=== PATIENT | female | born 1950 | race Caucasian/White ===

== ENCOUNTER 2023-01-10 10:36 | Outpatient (OUT) | payer MEDICARE, SELFPAY ==
--- NOTE | 2023-01-10 10:46 | MM_ITS ---
Patient Name: SHAAN CHOUDHARY MR#: [id number] : 1950 Exam Date: 01/10/2023 Ordering Doctor: DR JOSE HOPKINS M.D. RADIOLOGY REPORT PROCEDURE: MM TOMOSYNTHESIS SCREENING BI COMPARISON: MG MAMM SCREEN 3D SHIRLEY CAD, 12/30/2021. MG MAMM SCREEN 3D SHIRLEY CAD, 12/29/2020. MG MAMM SCREEN SHIRLEY W CAD, 12/11/2019. MG MAMM SHIRLEY SCRN W CAD DIG, 09/10/2012. INDICATIONS: Screening Calculator Name NCI Breast Cancer Risk Assessment Tool 5 Year Breast Cancer Risk 2.30% Lifetime Breast Cancer Risk 6.40% Personal Breast Cancer No Personal Ovarian Cancer No Treatments None Family Cancers Grandmother-maternal with breast cancer at age 80; Father with lung cancer at age 78; Grandmother-maternal with uterine cancer at age ~80. LOCATION: [facility] BREAST COMPOSITION: Scattered areas fibroglandular density. FINDINGS: DIAGNOSTIC CATEGORY 2--BENIGN FINDING: RIGHT BREAST: No significant suspicious finding. Scattered benign-appearing calcifications are present. No significant change has occurred. LEFT BREAST: No significant suspicious finding. Scattered benign-appearing calcifications are present. No significant change has occurred. RECOMMENDATIONS: ROUTINE MAMMOGRAM AND CLINICAL EVALUATION IN 12 MONTHS. PLEASE NOTE: A NORMAL MAMMOGRAM DOES NOT EXCLUDE THE POSSIBILITY OF BREAST CANCER. A CLINICALLY SUSPICIOUS PALPABLE LUMP SHOULD BE BIOPSIED. Dictated by: Jayjay Beauchamp M.D. on 01/16/2023 at 12:43 Approved by: Jayjay Beauchamp M.D. on 01/16/2023 at 12:46
== END 2023-01-10 10:37 | disposition home or self-care (01) ==
LOC: MAMMO 10:39
PROVIDERS: PCP Family Medicine; Visit Provider Family Medicine
DX: Z12.31 Encounter for screening mammogram for malignant neoplasm of breast (principal); Z80.3 Family history of malignant neoplasm of breast; Z80.1 Family history of malignant neoplasm of trachea, bronchus and lung; Z80.8 Family history of malignant neoplasm of other organs or systems
CPT/HCPCS: 77063; 77067

== ENCOUNTER 2024-01-15 11:08 | Outpatient (OUT) | payer MEDICARE, SELFPAY ==
--- NOTE | 2024-01-15 11:14 | MM_ITS ---
Patient Name: SHAAN CHOUDHARY MR#: [id number] : 1950 Exam Date: 01/15/2024 Ordering Doctor: DR JOSE HOPKINS M.D. RADIOLOGY REPORT PROCEDURE: MM TOMOSYNTHESIS SCREENING BI COMPARISON: MM TOMOSYNTHESIS SCREENING BI, 01/10/2023. MG MAMM SCREEN 3D SHIRLEY CAD, 12/30/2021. MG MAMM SCREEN 3D SHIRLEY CAD, 12/29/2020. MG MAMM SHIRLEY SCRN W CAD DIG, 09/10/2012. INDICATIONS: Screening Calculator Name NCI Breast Cancer Risk Assessment Tool 5 Year Breast Cancer Risk 2.40% Lifetime Breast Cancer Risk 6.10% Personal Breast Cancer No Personal Ovarian Cancer No Treatments None Family Cancers Grandmother-maternal with breast cancer at age 80; Father with lung cancer at age 78; Grandmother-maternal with uterine cancer at age ~80. LOCATION: [facility] BREAST COMPOSITION: There are scattered areas of fibroglandular density. FINDINGS: DIAGNOSTIC CATEGORY 2--BENIGN FINDING: RIGHT BREAST: No significant suspicious finding. Scattered benign-appearing calcifications are present. No significant change has occurred. LEFT BREAST: No significant suspicious finding. Scattered benign-appearing calcifications are present. No significant change has occurred. RECOMMENDATIONS: ROUTINE MAMMOGRAM AND CLINICAL EVALUATION IN 12 MONTHS. PLEASE NOTE: A NORMAL MAMMOGRAM DOES NOT EXCLUDE THE POSSIBILITY OF BREAST CANCER. A CLINICALLY SUSPICIOUS PALPABLE LUMP SHOULD BE BIOPSIED. Dictated by: Jayjay Beauchamp M.D. on 01/15/2024 at 15:31 Approved by: Jayjay Beauchamp M.D. on 01/15/2024 at 15:33
--- OUTSIDE RECORDS SUMMARY | 2024-01-15 11:30 | XMS_ITS | CCD ---
Author Organization [facility] Care Team Providers Care Postal Delivery Officer Name Role Phone AUSTIN PADRON Attending Unavailable KELLIE, DR GARCIA Primary Care Unavailable VITO, DR AUSTIN Boyd Admitting Unavailjerry PADRON, DR AUSTIN Boyd Attending Unavailjerry PADRON, DR AUSTIN Boyd Consulting Unavailabl e CHARLES, DR SAHARA Zurita Consulting Unavailabl e GREGORIO, DR SUYAPA Peraza Consulting Unavailable MORGOLiz, MONO Consulting Unavailable GEMBUS, JOSELUIS Consulting Unavailable KELLIE, DR GARCIA Admitting Unavailable KELLIE, DR GARCIA Attending Unavailable KELLIE, DR GARCIA Primary Care Unavailable KELLIE, DR GARCIA Consulting Unavailable QUITMAN, DR MOHSEN Vo Consulting Unavailable Cris Hopkins MD Unavailable [phone] Cris Hopkins MD Primary Care Provider CRIS HOPKINS Primary Care Unavailable ROBSON STONE Referring Unavailable MOHSEN LONGORIA Attending Unavailable MOHSEN LONGORIA Referring Unavailable CRIS HOPKINS Primary Care Unavailable MOHSEN LONGORIA Referring Unavailable CRIS HOPKINS Primary Care Unavailable CRIS HOPKINS Primary Care Unavailable ROBSON STONE Admitting Unavailable ROBSON STONE Attending Unavailable MOHSEN LONGORIA Attending Unavailable CRIS HOPKINS Primary Care Unavailable KANIKA VAZQUEZ Attending Unavailable CRIS HOPKINS Referring Unavailable KANIKA VAZQUEZ Attending Unavailable CRIS HOPKINS Referring Unavailable CRIS HOPKINS Attending Unavailable CRIS HOPKINS Referring Unavailable GEORGE KANIKA T Attending Unavailable CRIS HOPKINS Referring Unavailable ROBSON STONE Attending Unavailable ROGERIO LOPEZ Attending Unavailable GEORGE, KANIKA T Attending Unavailable CRIS HOPKINS Referring Unavailable KANIKA VAZQUEZ Attending Unavailable CRIS HOPKINS Referring Unavailable KANIKA VAZQUEZ Attending Unavailable CRIS HOPKINS Referring Unavailable KANIKA VAZQUEZ Attending Unavailable CRIS HOPKINS Referring Unavailable ROBSON STONE Attending Unavailable ROBSON STONE S Attending Unavailable ROBSON STONE S Referring Unavailable ROBSON STONE S Attending Unavailable CRIS HOPKINS Attending Unavailable RBOSON STONE S Attending Unavailable ROBSON STONE S Attending Unavailable ROBSON STONE S Attending Unavailable Allergies Allergy Classification Reported Allergen(s) Allergy Type Date of Onset Reaction(s) Facility (2 sources) Penicillins; Translations: [PENICILLINS] Drug allergy (disorder) 4 [facility] Repository (9 sources) Lisinopril; Translations: [LISINOPRIL] Propensity to adverse reactions 7 Cough [facility] Work Phone: (8 sources) Penicillins Drug Intolerance 7 Rash [facility] Medications Current Medications Medication Drug Class(es) Dates Sig (Normalized) Sig (Original) alendronic acid 70 mg oral tablet (9 sources) Bisphosphonate Start: 01-14-2024 take 1 tablet by mouth every week alendronate (Fosamax) 70 MG tablet Indications: Osteopenia, unspecified location TAKE 1 TABLET BY MOUTH EVERY WEEK 12 tablet 1 01/14/2024 Active Start: 08-06-2023 End: 01-14-2024 take 1 tablet by mouth every week alendronate (Fosamax) 70 MG tablet Indications: Osteopenia, unspecified location TAKE 1 TABLET BY MOUTH EVERY WEEK 12 tablet 1 08/06/2023 01/14/2024 Discontinued Start: 02-05-2023 take 1 tablet by elzbieta th every week alendronate (Fosamax) 70 MG tablet Indications: Osteopenia, unspecified location TAKE 1 TABLET BY MOUTH EVERY WEEK 12 tablet 0 02/05/2023 Active cyclobenzaprine hydrochloride 10 mg oral tablet (6 sources) Muscle Relaxant Start: 11-22-2023 take 1 tablet by mouth three times daily as needed cyclobenzaprine (Flexeril) 10 MG tablet Take 10 mg by mouth 3 (three) times a day as needed 11/22/2023 Active gabapentin (7 sources) Anti-epileptic Agent Gabapentin 10 % cream Apply topically Active losartan potassium 100 mg oral tablet (8 sources) Angiotensin 2 Receptor Luís Start: 10-29-2023 take 1 tablet by mouth once daily losartan (Cozaar) 100 MG tablet Indications: Primary hypertension (CMS/HCC) TAKE 1 TABLET BY MOUTH ONCE DAILY 100 tablet 10/29/2023 Active Start: 08-11-2022 take 1 tablet by elzbieta th once daily losartan (Cozaar) 100 MG tablet Indications: Primary hypertension (CMS/HCC) TAKE 1 TABLET BY MOUTH ONCE DAILY 100 tablet 2 08/11/2022 Active methylPREDNISolone (1 source) Corticosteroid Start: 04-04-2023 methylPREDNISolone (Medrol Dospak) 4 MG tablets Indications: Achilles tendinitis of right lower extremity Take as directed on package. 21 tablet 0 04/04/2023 Active moxifloxacin 5 mg/ml ophthalmic solution (8 sources) Quinolone Antimicrobial Start: 11-16-2022 take 1 drop(s) into the eye(s) four times daily moxifloxacin (Vigamox) 0.5 % ophthalmic solution instill 1 (ONE) DROP IN THE AFFECTED EYE(S) FOUR TIMES DAILY for the day following surgery FOR 7 DAYS 11/16/2022 Active NON FORMULARY (7 sources) Start: 06-04-2023 NON FORMULARY 06/04/2023 Active oxyCODONE hydrochloride 5 mg oral tablet (6 sources) Opioid Agonist Start: 11-22-2023 take 1 tablet by mouth every four hours as needed oxyCODONE (Roxicodone) 5 MG immediate release tablet Take 5 mg by mouth every 4 (four) hours if needed 11/22/2023 Active prednisoLONE acetate 10 mg/ml ophthalmic suspension (8 sources) Corticosteroid Start: 11-23-2022 take 1 drop(s) into the eye(s) four times daily prednisoLONE acetate (Pred-Forte) 1 % ophthalmic suspension instill 1 (ONE) DROP IN THE AFFECTED EYE(S) FOUR TIMES DAILY following surgery FOR 7 DAYS 11/23/2022 Active Problems Active Problems Problem Classification Problem Date Documented Da te Episodic/Chronic Abdominal pain (3 sources) Unspecified abdominal pain; Translations: [UNSPECIFIED ABDOMINAL PAIN] Onset: 11-08-2021 Episodic Appendicitis and other appendiceal conditions (1 source) Acute appendicitis with perforation and localized peritonitis, without abscess; Translations: [AC APPEND W/PERF LOC PERIT W/O ABSC] Onset: 11-14-2021 Episodic Disorders of lipid metabolism (8 sources) Hyperlipidemia; Translations: [Hyperlipidemia, unspecified] Onset: 09-28-2022 09-28-2022 Chronic Essential hypertension (10 sources) Essential (primary) hypertension; Translations: [Essential hypertension] Onset: 07-11-2016 09-28-2022 Chronic Miscellaneous mental health disorders (8 sources) Primary insomnia; Translations: [Primary insomnia] Onset: 09-28-2022 09-28-2022 Chronic Osteoarthritis (8 sources) Localized, primary osteoarthritis of the pelvic region and thigh; Translations: [Unilateral primary osteoarthritis, unspecified hip] Onset: 09-28-2022 09-28-2022 Chronic Other bone disease and musculoskeletal deformities (9 sources) Osteopenia; Translations: [Other specified disorders of bone density and structure, unspecified site] Onset: 01-07-2018 09-28-2022 Episodic Other connective tissue disease (1 source) Right achilles tendonitis; Translations: [Achilles tendinitis, right leg] 04-04-2023 Episodic Other connective tissue disease (1 source) Other muscle spasm; Translations: [Other muscle spasm] Onset: 11-22-2023 Episodic Other connective tissue disease (4 sources) Pain in right foot; Translations: [Pain in right foot] 12-05-2023 Episodic Other screening for suspected conditions (not mental disorders or infectious disease) (4 sources) Encounter for screening mammogram for malignant neoplasm of breast; Translations: [ENC SCR MAMMO MALIG NEOPLASM BREAST] Onset: 12-30-2021 Episodic Residual codes; unclassified (1 source) Family history of malignant neoplasm of breast; Translations: [FAMILY HX MALIG NEOPLASM OF BREAST] Onset: 01-03-2022 Episodic Residual codes; unclassified (1 source) Family history of malignant neoplasm of trachea, bronchus and lung; Translations: [FAM HX MALIG NEOPLSM TRACH BRON LNG] Onset: 01-03-2022 Episodic Residual codes; unclassified (1 source) Family history of malignant neoplasm of other genital organs; Translations: [FAM HX MALIG NEOPLSM OTH GENIT ORGN] Onset: 01-03-2022 Episodic Residual codes; unclassified (1 source) Other specified postprocedural states; Translations: [Other specified postprocedural states] Onset: 11-22-2023 Episodic Residual codes; unclassified (4 sources) History of operative procedure on foot; Translations: [Other specified postprocedural states] 12-05-2023 Episodic Residual codes; unclassified (2 sources) Localized edema; Translations: [Localized edema] 12-19-2023 Episodic Unclassified (1 source) CONTACT W/AND (SUSP) EXPOS COVID-19; Translations: [CONTACT W/AND (SUSP) EXPOS COVID-19] Onset: 11-14-2021 Unclassified (1 source) right achilles tendonitis, equinus contracture Onset: 11-22-2023 Past or Other Problems Problem Classification Problem Date Documented Da te Episodic/Chronic Mood disorders (7 sources) Mood disorders Onset: 09-28-2023 09-28-2023 Results Test Name Value Interpretation Reference Range Facil it BASIC METABOLIC PANLon 11-12 Anion gap [Moles/Vol] 8 mmol/L Normal 5-15 [facility] Comment on above: Performed By: #### B MP #### [facility] ([id number]) [address], [address] [place] [address] Calcium [Mass/Vol] 8.9 mg/dL Normal 8.5-10.5 [facility] Comment on above: Performed By: #### B MP #### [facility] ([id number]) [address], [address] [place] [address] Chloride [Moles/Vol] 105 mmol/L Normal 98-109 [facility] Comment on above: Performed By: #### B MP #### [facility] ([id number]) [address], [address] [place] [address] CO2 [Moles/Vol] 27 mmol/L Normal 22-32 [facility] Comment on above: Performed By: #### B MP #### [facility] ([id number]) [address], [address] [place] [address] Creatinine [Mass/Vol] 0.68 mg/dL Normal 0.40-1.00 [facility] Comment on above: Result Comment: METH OD TRACEABLE TO IDMS STANDARD Performed By: #### B MP #### [facility] ([id number]) [address], [address] [place] [address] eGFR (CKD-EPI) NON-RACE DEPENDENT >90 Normal >59 [facility] Comment on above: Result Comment: Reported eGFR is based on the CKD-EPI 2020 equation that does not use a race coefficient. Performed By: #### B MP #### [facility] ([id number]) [address], [address] [place] [address] Glucose [Mass/Vol] 111 mg/dL High 65-99 [facility] Comment on above: Performed By: #### B MP #### [facility] ([id number]) [address] [place] [address] Potassium [Moles/Vol] 3.8 mmol/L Normal 3.5-5.0 [facility] Comment on above: Performed By: #### B MP #### [facility] ([id number]) [address], [address] [place] [address] Sodium [Moles/Vol] 140 mmol/L Normal 134-146 [facility] Comment on above: Performed By: #### B MP #### [facility] ([id number]) [address] [place] [address] Urea nitrogen [Mass/Vol] 9 mg/dL Normal 5-27 [facility] Comment on above: Performed By: #### B MP #### [facility] ([id number]) [address], [address] [place] [address] MR ANKLE RIGHT WO IV CONTRAS Ton 08-22-2023 MR ANKLE RIGHT WO IV CONTRAST HISTORY: Heel pain at the Achilles. No recent injury. TECHNIQUE: Routine MRI of the right ankle/hindfoot COMPARISON: None RESULT: Cartilage: Tibiotalar and subtalar joint cartilage grossly preserved. Ligaments: Talofibular ligaments, tibiofibular ligaments, calcaneofibular ligament and deltoid ligament all appear to be intact. Tendons: - Moderate to severe Achilles tendinosis with tendon measuring around 10 mm in AP dimension, with small areas of low-grade partial-thickness stripping/tearing distally near the insertion involving the deeper fibers, without full-thickness tear. Small amount of fluid within the retrocalcaneal bursal region. Small amount of reactive edema within the posterior calcaneus at the insertion. - Extensor tendons appear intact. - Medial flexor tendons appear intact with small amount of fluid at the knot of Samuel. -Small amount of increased fluid within the peroneal tendon sheath, without distinct peroneal tear. Joint Fluid: Small tibiotalar joint effusion. Bone Marrow: Bone marrow edema involving the posterior calcaneus near the Achilles insertion as above, likely reactive. No evidence for fracture, osteomyelitis, or marrow replacing process. Plantar Aponeurosis: Mild thickening near origin with associated enthesophyte, without tear. Sinus Tarsi: Sinus tarsi is within normal limits. Muscle: Muscle bulk and signal intensity is within normal limits. Tarsal Tunnel: Tarsal tunnel is within normal limits. Other: Mild subcutaneous edema. IMPRESSION: Moderate to severe Achilles tendinosis with small areas of low-grade partial-thickness tearing/stripping distally, without full-thickness tear. Small amount of retrocalcaneal bursitis and reactive edema within the calcaneus at the Achilles insertion. Mild peroneal tenosynovitis, without tear. Mild tenosynovitis at the knot of Samuel. ELECTRONICALLY SIGNED BY: Joseluis Peña MD Normal Not Available DEXA BONE DENSITYon 01-17-20 DEXA BONE DENSITY HISTORY: Screening for osteoporosis COMPARISON: 01/10/2021 DEXA COMMENTS: The lumbar spine and both hips were scanned. The mean bone mineral density from L1 to L4 is 1.103 g/sq cm. T-score 0.5. Z- score 2.7 The mean bone mineral density of the left femoral neck is 0.773 g/sq cm. T-score -0.7. Z- score 1.2. The mean bone mineral density of the right femoral neck is 0.664 g/sq cm. T-score -1.7. Z- score 0.2. These values meet WHO criteria for osteopenia. 10-year fracture risk: Major osteoporotic fracture 10%; hip fracture 1.7%. Hip bone mineral density change versus previous 4.5%. Lumbar spine bone mineral density change versus previous 1.1%. IMPRESSION: OSTEOPENIA. 1 year follow-up recommended. ELECTRONICALLY SIGNED BY: Cody Mitchell DO Normal Not Available MG MAMM SCREEN 3D SHIRLEY CADon 12-30-2021 MG MAMM SCREEN 3D SHIRLEY CAD Patient: SHAAN CHOUDHARY Exam Date: 12/30/2021 : 1950 Gender:F Ordering : DR CRIS HOPKINS M.D. Admission #: [id number] Family : Order #: [id number] CLICK HERE TO VIEW EXAM RADIOLOGY REPORT PROCEDURE: MAMMOGRAM SCREENING 3D BILATERAL CAD COMPARISON: MG MAMM SCREEN 3D SHIRLEY CAD, 12/29/2020. MG MAMM SCREEN SHIRLEY W CAD, 12/11/2019. INDICATIONS: Screening mammography Calculator Name NCI Breast Cancer Risk Assessment Tool 5 Year Breast Cancer Risk 2.30% Lifetime Breast Cancer Risk 6.70% Personal Breast Cancer No Personal Ovarian Cancer No Treatments None Family Cancers Grandmother-maternal with breast cancer at age 80; Father with lung cancer at age 78; Grandmother-maternal with uterine cancer at age 80. LOCATION: [facility] BREAST COMPOSITION: Scattered areas fibroglandular density. FINDINGS: DIAGNOSTIC CATEGORY 1--NEGATIVE. NO CHANGE FROM COMPARISON ASSESSMENT. Scattered benign-appearing calcifications are present. Scattered benign-appearing lymph nodes are present. RIGHT BREAST: No significant suspicious finding. LEFT BREAST: No significant suspicious finding. RECOMMENDATIONS: ROUTINE MAMMOGRAM AND CLINICAL EVALUATION IN 12 MONTHS. PLEASE NOTE: A NORMAL MAMMOGRAM DOES NOT EXCLUDE THE POSSIBILITY OF BREAST CANCER. A CLINICALLY SUSPICIOUS PALPABLE LUMP SHOULD BE BIOPSIED. Dictated by: Mohsen Grimaldo MD on 12/30/2021 at 11:16 Approved by: Mohsen Grimaldo MD on 12/30/2021 at 11:17 Normal [facility] SURGICAL PATH REPORTon 11-10 SURGICAL PATH REPORT [facility] Department of Pathology [address] [place] [phone] Name: SHAAN CHOUDHARY : 1950 [facility] [id number] Number: Gender Female Francesco [place]Y [place] : n: Admit 70 years Attending AUSTIN PADRON Age: Provider: Ordering AUSTIN PADRON Provider: [facility] Report ng: ACCESSION: COLLECTED DATE/TIME: RECEIVED DATE/TIME: PATHOLOGIST: [id number] 11/08/2021 16:30 EDT 11/09/2021 11:42 EDT RAGHU ORLANDO, YAW WHITMORE Final Diagnosis Report for [facility] [place] [place] APPENDIX, APPENDECTOMY: - ACUTE APPENDICITIS WITH PERFORATION. YAW KRISHNAMURTHY PATHOLOGIST (Electronic Signature) Date Verified 11/10/2021 LN Clinical Data PRE-OP DIAGNOSIS: Not specified POST-OP DIAGNOSIS: Acute gangrenous perforated appendicitis PROCEDURES: Laparoscopic appendectomy SPECIMEN: Appendix / Observation Gross Description Labeled appendix. Received in formalin is a cylindrical structure with attached mesoappendiceal adipose tissue. It measures 8.0 cm in length with a proximal cross diameter of 1.0 cm, distally 0.9 cm. The attached mesoappendiceal adipose tissue radiates to a maximum dimension of 2.0 cm. The serosal surface is daily pink to red brown, irregular and shaggy. The stapled line of resection is inked in blue. On cut section, the proximal lumen has a cross diameter of 0.6 cm, distally 0.1 cm. The surrounding wall is daily with multiple areas of red black discoloration. The lumen is filled with brown material. Rotary Machine Operator sections are submitted in two cassettes. The line of resection is submitted in cassette #1. ____ Print 11/10/2021 14:03 EDT Number: Date/Time: [facility] Department of Pathology [address] [place] [phone] Name: SHAAN CHOUDHARY : 1950 [employer] [id number] Number: Gender Female Locatio ZBIGNIEW CRISTOFER : n: Admit 70 years Attending AUSITN PADRON Age: Provider: Ordering AUSTIN PADRON Provider: [facility] Pathology Report ng: ACCESSION: COLLECTED DATE/TIME: RECEIVED DATE/TIME: PATHOLOGIST: [id number] 11/08/2021 16:30 EDT 11/09/2021 11:42 EDT RAGHU ORLANDO, YAW WHITMORE Gross Description MP/ln 11/09/2021 Tissue pathology report for: [facility], [address] [place] [address]; PATHOLOGY SERVICES PROVIDED BY [employer] (CLIA #[id number]) in cooperation with [facility] at [address] [place] [address] ( CLIA #[id number]) Codes CPT CODE: 18093 ____ Print 11/10/2021 14:03 EDT Number: Date/Time: Normal [facility] Comment on above: Performed By: #### [id number] #### [facility] Laboratory Services [address] [place] [address] Computer Language Coder: Jose Jha MD CBC AUTO DIFFon 11-09-2021 BASO # 0.0 103/ul Normal 0.0-0.1 [facility] Comment on above: Performed By: #### C BC #### [facility] [address] [place] [address] Dr. Radha Small Basophils/100 WBC (Bld) 0.1 % Critically low 0.2-2.0 [facility] Comment on above: Performed By: #### C BC #### [facility] [address] [place] [address] Dr. Radha Small EO # 0.0 103/ul Normal 0.0-0.7 [facility] Comment on above: Performed By: #### C BC #### [facility] [address] [place] [address] Dr. Radha Small Eosinophils/100 WBC (Bld) 0.0 % Critically low 0.9-7.0 [facility] Comment on above: Performed By: #### C BC #### [facility] [address] [place] [address] Dr. Radha Small Erythrocyte distribution width (RBC) [Ratio] 13.4 % Normal 11.0-15.0 [facility] Comment on above: Performed By: #### C BC #### [facility] [address] [place] [address] Dr. Rdaha Small Hematocrit (Bld) [Volume fraction] 28.9 % Critically low 36.0-48.0 [facility] Comment on above: Performed By: #### C BC #### [facility] [address] [place] [address] Dr. Radha Small Hemoglobin (Bld) [Mass/Vol] 9.7 g/dL Critically low 12.0-16.0 [facility] Comment on above: Performed By: #### C BC #### [facility] [address] [place] [address] Dr. Radha Small IG # 0.07 10e3/ul Critically high 0.00-0.03 [facility] Comment on above: Performed By: #### C BC #### [facility] [address] [place] [address] Dr. Radha Small IG % 0.5 % Normal 0.0-0.5 [facility] Comment on above: Performed By: #### C BC #### [facility] [address] [place] [address] Dr. Radha Small LYMPH # 0.9 103/ul Critically low 1.2-3.8 [facility] Comment on above: Performed By: #### C BC #### [facility] [address] [place] [address] Dr. Radha Small Lymphocytes/100 WBC (Bld) 6.9 % Critically low 20.5-60.0 [facility] Comment on above: Performed By: #### C BC #### [facility] [address] [place] [address] Dr. Radha Small MANUAL DIFF REQ NO Normal [facility] Comment on above: Performed By: #### C BC #### [facility] [address] [place] [address] Dr. Radha Small MCH (RBC) [Entitic mass] 30.4 pg Normal 26.7-34.0 [facility] Comment on above: Performed By: #### C BC #### [facility] [address] [place] [address] Dr. Radha Small MCHC (RBC) [Mass/Vol] 33.6 g/dL Normal 29.9-35.2 [facility] Comment on above: Performed By: #### C BC #### [facility] [address] [place] [address] Dr. Radha Small MCV (RBC) [Entitic vol] 90.6 fL Normal 81.0-99.0 [facility] Comment on above: Performed By: #### C BC #### [facility] [address] [place] [address] Dr. Radha Small MONO # 0.7 103/ul Normal 0.3-0.8 [facility] Comment on above: Performed By: #### C BC #### [facility] [address] [place] [address] Dr. Radha Small Monocytes/100 WBC (Bld) 5.3 % Normal 1.7-12.0 [facility] Comment on above: Performed By: #### C BC #### [facility] [address] [place] [address] Dr. Radha Small NEUT # 11.5 103/ul Critically high 1.4-6.5 [facility] Comment on above: Performed By: #### C BC #### [facility] [address] [address] [address] Radha Small Neutrophils/100 WBC (Bld) 87.2 % Critically high 43.0-75.0 [facility] Comment on above: Performed By: #### C BC #### [facility] [address] [address] [address] Radha Small Platelet mean volume (Bld) [Entitic vol] 8.6 fL Critically low 9.5-13.5 [facility] Comment on above: Performed By: #### C BC #### [facility] [address] [address] [address] Radha Small PLT 173 103/ul Normal 150-450 [facility] Comment on above: Performed By: #### C BC #### [facility] [address] [place] [address] Dr. Radha Small RBC 3.19 106/ul Critically low 4.20-5.40 [facility] Comment on above: Performed By: #### C BC #### [facility] [address] [place] [address] Dr. Radha Small WBC 13.2 103/ul Critically high 4.0-11.0 [facility] Comment on above: Performed By: #### C BC #### [facility] [address] [place] [address] Dr. Radha Small CBC AUTO DIFFon 11-08-2021 BASO # 0.0 103/ul Normal 0.0-0.1 [facility] Comment on above: Performed By: #### C BC #### [facility] [address] [place] [address] Dr. Radha Small Basophils/100 WBC (Bld) 0.2 % Normal 0.2-2.0 [facility] Comment on above: Performed By: #### C BC #### [facility] [address] [place] [address] Dr. Radha Small EO # 0.0 103/ul Normal 0.0-0.7 [facility] Comment on above: Performed By: #### C BC #### [facility] [address] [place] [address] Dr. Radha Small Eosinophils/100 WBC (Bld) 0.0 % Critically low 0.9-7.0 [facility] [place] [facility] Comment on above: Performed By: #### C BC #### [facility] [address] [place] [address] Dr. Radha Small Erythrocyte distribution width (RBC) [Ratio] 13.1 % Normal 11.0-15.0 [facility] [place] [facility] Comment on above: Performed By: #### C BC #### [facility] [address] [place] [address] Dr. Radha Small Hematocrit (Bld) [Volume fraction] 35.8 % Critically low 36.0-48.0 [facility] [place] [facility] Comment on above: Performed By: #### C BC #### [facility] [address] [place] [address] Dr. Radha Small Hemoglobin (Bld) [Mass/Vol] 11.9 g/dL Critically low 12.0-16.0 [facility] [place] [facility] Comment on above: Performed By: #### C BC #### [facility] [address] [place] [address] Dr. Radha Small IG # 0.08 10e3/ul Critically high 0.00-0.03 [facility] Comment on above: Performed By: #### C BC #### [facility] [address] [place] [address] Dr. Radha Small IG % 0.5 % Normal 0.0-0.5 [facility] [place] [facility] Comment on above: Performed By: #### C BC #### [facility] [address] [place] [address] Dr. Radha Small LYMPH # 1.3 103/ul Normal 1.2-3.8 [facility] [place] [facility] Comment on above: Performed By: #### C BC #### [facility] [address] [place] [address] Dr. Radha Small Lymphocytes/100 WBC (Bld) 7.7 % Critically low 20.5-60.0 [facility] [place] [facility] Comment on above: Performed By: #### C BC #### [facility] [address] [place] [address] Dr. Radha Small MANUAL DIFF REQ NO Normal [facility] Comment on above: Performed By: #### C BC #### [facility] [address] [place] [address] Dr. Radha Small MCH (RBC) [Entitic mass] 29.6 pg Normal 26.7-34.0 [facility] [place] [facility] Comment on above: Performed By: #### C BC #### [facility] [address] [place] [address] Dr. Radha Small MCHC (RBC) [Mass/Vol] 33.2 g/dL Normal 29.9-35.2 [facility] [place] [facility] Comment on above: Performed By: #### C BC #### [facility] [address] [place] [address] Dr. Radha Small MCV (RBC) [Entitic vol] 89.1 fL Normal 81.0-99.0 [facility] [place] [facility] Comment on above: Performed By: #### C BC #### [facility] [address] [place] [address] Dr. Radha Small MONO # 1.4 103/ul Critically high 0.3-0.8 [facility] Comment on above: Performed By: #### C BC #### [facility] [address] [place] [address] Dr. Radha Small Monocytes/100 WBC (Bld) 8.3 % Normal 1.7-12.0 [facility] Comment on above: Performed By: #### C BC #### [facility] [address] [place] [address] Dr. Radha Small NEUT # 13.7 103/ul Critically high 1.4-6.5 [facility] Comment on above: Performed By: #### C BC #### [facility] [address] [place] [address] Dr. Radha Small Neutrophils/100 WBC (Bld) 83.3 % Critically high 43.0-75.0 [facility] Comment on above: Performed By: #### C BC #### [facility] [address] [place], [place] [address] Dr. Radha Small Platelet mean volume (Bld) [Entitic vol] 8.7 fL Critically low 9.5-13.5 [facility] Comment on above: Performed By: #### C BC #### [facility] [address] [place], [place] [address] Dr. Radha Small PLT 253 103/ul Normal 150-450 [facility] Comment on above: Performed By: #### C BC #### [facility] [address] [place], [place] [address] Dr. Radha Small RBC 4.02 106/ul Critically low 4.20-5.40 [facility] Comment on above: Performed By: #### C BC #### [facility] [address] [id number] Radha Small WBC 16.5 103/ul Critically high 4.0-11.0 [facility] Comment on above: Performed By: #### C BC #### [facility] [address] ABD/PELV W CONon 11-09-19 CT ABD/PELV W CON EXAMINATION: CT ABD/PELV W CON HISTORY: GENERALIZED ABDOMINAL PAIN , nausea and vomiting COMPARISON: No relevant comparison available. TECHNIQUE: Axial, Coronal, and Sagittal images were created with IV contrast. Dose reduction techniques were achieved by using automated exposure control and/or adjustment of mA and/or kV according to patient size and/or use of iterative reconstruction technique. FINDINGS: LUNG BASES: No visible pulmonary or pleural disease. LIVER: No enlargement, atrophy, suspicious density, or significant focal lesion. BILIARY: No dilatation or calcification. PANCREAS: No lesion, fluid collection, or abnormal duct dilatation. SPLEEN: No enlargement or focal lesion. ADRENALS: No mass or enlargement. KIDNEYS: No mass, obstruction, or calcification. BOWEL/MESENTERY: Inflamed appendix dilated up to 2.0 cm with large appendicolith at its connection with the cecum. Mild surrounding inflammatory changes; no free air or free fluid. No bowel obstruction or ileus. AORTA/VASCULAR: No aneurysm or dissection. RETROPERITONEUM: No mass or adenopathy. LYMPH NODES: No adenopathy. URINARY BLADDER: No visible focal wall thickening, lesion, or calculus. PELVIC ORGANS: No visible mass. Pelvic organs appropriate for patient age. ABDOMINAL WALL: No mass or hernia. BONES: Grade 1 anterolisthesis of L5 on S1 secondary to bilateral pars interarticularis defects and marked degenerative disc disease. OTHER: Negative. IMPRESSION: 1. Acute appendicitis with marked dilation (2.0 cm) but only mild surrounding inflammatory changes. No perforation. Electronically authenticated by: SUYAPA PERKINS Date: 2021-11-08 09:26 Normal [facility] Covid-19 PCR (CVDTBH)on 10-21 SARS-CoV-2 (COVID-19) RNA TATIANA+probe Ql (Unsp spec) Not detected Normal NOT DETECTED [facility] Comment on above: Result Comment: When diagnostic testing is negative, the possibility of a false negative should be considered in the context of a patient's recent exposures and the presence of clinical signs and symptoms consistent with SARS-CoV-2. This test is not yet approved or cleared by the [place] FDA. When there are no FDA-approved or cleared tests available, and other criteria are met, FDA can make tests available under an emergency access mechanism called an Emergency Use Authorization (EUA). The EUA for this test is supported by the [employer] of Health and Human Service's declaration that circumstances exist to justify the emergency use of in vitro diagnostics for the detection and/or diagnosis of the virus that causes COVID-19. This EUA will remain in effect for the duration of the COVID-19 declaration justifying emergency of IVDs, unless it is terminated or revoked by the FDA (after which the test may no longer be used). Performed By: #### C VDTBH #### [facility] [address] [address] [address] Radha Small LIPASEon 11-08-2021 Lipase [Catalytic activity/Vol] 182.0 U/L Normal 73.0-393.0 [facility] [place] [facility] Comment on above: Performed By: #### L IPA, CMP #### [facility] [address] [address] [address] Radha Small PROF 14(COMP METB)on 022 Albumin [Mass/Vol] 3.3 g/dL Critically low 3.4-5.0 [facility] Comment on above: Performed By: #### L IPA, CMP #### [facility] [address] [address] [address] Radha Small Albumin/Globulin [Mass ratio] 0.8 {ratio} Normal [facility] [place] [facility] Comment on above: Performed By: #### L IPA, CMP #### [facility] [address] [address] [address] Radha Small ALP [Catalytic activity/Vol] 60 U/L Normal 46-116 [facility] [place] [facility] Comment on above: Performed By: #### L IPA, CMP #### [facility] [address] [place] [address] Dr. Radha Small ALT [Catalytic activity/Vol] 19 U/L Normal 14-59 [facility] [place] [facility] Comment on above: Performed By: #### L IPA, CMP #### [facility] [address] [place] [address] Dr. Radha Small Anion gap [Moles/Vol] 11.9 mmol/L Normal [facility] [place] [facility] Comment on above: Performed By: #### L IPA, CMP #### [facility] [address] [place] [address] Dr. Radha Small AST [Catalytic activity/Vol] 14 U/L Critically low 15-37 [facility] [place] [facility] Comment on above: Performed By: #### L IPA, CMP #### [facility] [address] [address] [address] Radha Small Bilirubin [Mass/Vol] 0.7 mg/dL Normal 0.2-1.0 [facility] [place] [facility] Comment on above: Performed By: #### L IPA, CMP #### [facility] [address] [address] [address] Radha Small Calcium [Mass/Vol] 8.5 mg/dL Normal 8.5-10.1 [facility] Comment on above: Performed By: #### L IPA, CMP #### [facility] [address] [address] [address] Radha Small Chloride [Moles/Vol] 100 mmol/L Normal 98-107 [facility] [place] [facility] Comment on above: Performed By: #### L IPA, CMP #### [facility] [address] [place] [address] Dr. Radha Small CO2 [Moles/Vol] 25.7 mmol/L Normal 21.0-32.0 [facility] Comment on above: Performed By: #### L IPA, CMP #### [facility] [address] [place] [address] Dr. Radha Small Creatinine [Mass/Vol] 0.74 mg/dL Normal 0.55-1.02 [facility] [place] [facility] Comment on above: Performed By: #### L IPA, CMP #### [facility] [address] [place] [address] Dr. Radha Small EGFR-AF [place]OU[place]OREAN >60 Normal >=60 [facility] Comment on above: Performed By: #### L IPA, CMP #### [facility] [address] [place] [address] Dr. Radha Small EGFR-NON AF [place]ORE[place] >60 Normal >=60 [facility] [place] [facility] Comment on above: Performed By: #### L IPA, CMP #### [facility] [address] [place] [address] Dr. Radha Small Globulin (S) [Mass/Vol] 3.9 g/dL Normal [facility] [place] [facility] Comment on above: Performed By: #### L IPA, CMP #### [facility] [address] [place] [address] Dr. Radha Small Glucose [Mass/Vol] 140 mg/dL Critically high 74-106 [facility] Comment on above: Performed By: #### L IPA, CMP #### [facility] [address] [place] [address] Dr. Radha Small Potassium [Moles/Vol] 3.6 mmol/L Normal 3.5-5.1 [facility] Comment on above: Performed By: #### L IPA, CMP #### [facility] [address] [place] [address] Dr. Radha Small Protein [Mass/Vol] 7.2 g/dL Normal 6.4-8.2 [facility] Comment on above: Performed By: #### L IPA, CMP #### [facility] [address] [address] [address] Radha Small Sodium [Moles/Vol] 134 mmol/L Critically low 136-[address] [facility] Comment on above: Performed By: #### L IPA, CMP #### [facility] [address] [address] [address] Radha Small Urea nitrogen [Mass/Vol] 9.0 mg/dL Normal 7.0-18.0 [facility] [place] [facility] Comment on above: Performed By: #### L IPA, CMP #### [facility] [address] [address] [address] Radha Small Urea nitrogen/Creatinin e [Mass ratio] 12.2 mg/mg Normal [facility] [place] [facility] Comment on above: Performed By: #### L IPA, CMP #### [facility] [address] [address] [address] Radha Small Vital Signs Date Time Vital Sign Value Performing Clinician Faci lity 12-19-2023 10:43-0400 Body height 165.1 cm Robson Rusher DPM Work Phone: [facility] 12-19-2023 10:43-0400 Body mass index (BMI) [Ratio] 28.79 kg/m2 Robson Rusher DPM Work Phone: [facility] 12-19-2023 10:43-0400 Body weight 78.47 kg Robson Rusher DPM Work Phone: [facility] 12-05-2023 10:46-0400 Body height 165.1 cm Robson Rusher DPM Work Phone: [facility] 12-05-2023 10:46-0400 Body mass index (BMI) [Ratio] 28.79 kg/m2 Robson Rusher DPM Work Phone: [facility] 12-05-2023 10:46-0400 Body weight 78.47 kg Robson Rusher DPM Work Phone: [facility] Encounters Encounter Date Encounter Type Care Provider Facility Start: 01-14-2024 End: 01-14-2024 Refill Cris Hopkins MD [facility] Phone[facility] Comment on above: Osteopenia, unspecif ied location Start: 12-19-2023 End: 12-19-2023 Bamboo flowsheet Robson S Rusher DPM Work Phone: [facility] Start: 12-19-2023 End: 12-19-2023 Bamboo flowsheet Robson S Rusher DPM Work Phone: [facility] Start: 12-19-2023 End: 12-19-2023 Postop follow up visit related to original px Robson S Rusher DPM Work Phone: [facility] Comment on above: S/P foot surgery (Pr imary Dx); Right foot pain; Localized edema Start: 12-19-2023 End: 12-19-2023 ambulatory ROBSON S RUSHER Not Available Start: 12-05-2023 End: 12-05-2023 Bamboo flowsheet Robson S Rusher DPM Work Phone: [facility] Start: 12-05-2023 End: 12-05-2023 Bamboo flowsheet Robson S Rusher DPM Work Phone: [facility] Start: 12-05-2023 End: 12-05-2023 Postop follow up visit related to original px Robson S Rusher DPM Work Phone: [facility] Comment on above: S/P foot surgery (Pr imary Dx); Right foot pain Start: 12-05-2023 End: 12-05-2023 ambulatory ROBSON S RUSHER Not Available Start: 11-22-2023 End: 11-22-2023 Evaluation and management of inpatient MOHSEN LONGORIA [facility] Start: 11-22-2023 End: 11-22-2023 Evaluation and management of inpatient CRIS HOPKINS [facility] Start: 11-13-2023 Encounter for other preprocedural examination MOHSEN Love [facility] Start: 11-13-2023 End: 11-13-2023 ambulatory MOHSEN Love [facility] Start: 11-13-2023 End: 11-13-2023 ambulatory ROBSON S JEAN-PIERRE Not Available Start: 09-28-2023 End: 09-28-2023 ambulatory CRISVON HOPKINS Not Available Start: 09-14-2023 End: 09-14-2023 ambulatory ROBSON S GARCIAHER Not Available Start: 09-04-2023 End: 09-04-2023 ambulatory ROBSON S RUSHER Not Available Start: 08-22-2023 End: 08-22-2023 ambulatory ROBSON S GARCIAHER Not Available Start: 07-10-2023 End: 07-10-2023 ambulatory ROBSON S RUSHER Not Available Start: 07-02-2023 End: 07-02-2023 ambulatory KANIKA T BLACKSTON Not Available Start: 06-25-2023 End: 06-25-2023 ambulatory KANIKA T BLACKSTON Not Available Start: 06-20-2023 End: 06-20-2023 ambulatory KANIKA T BLACKSTON Not Available Start: 06-18-2023 End: 06-18-2023 ambulatory KANIKA T BLACKSTON Not Available Start: 05-30-2023 End: 05-30-2023 ambulatory ROBSON S RUSHER Not Available Start: 05-22-2023 End: 05-22-2023 ambulatory KANIKA T BLACKSTON Not Available Start: 05-15-2023 End: 05-15-2023 ambulatory KANIKA T BLACKSTON Not Available Start: 05-09-2023 End: 05-09-2023 ambulatory KANIKA T BLACKSTON Not Available Start: 04-04-2023 Orders Only Robson S Elvin er DPM Work Phone: [facility] Comment on above: Achilles tendinitis of right lower extremity (Primary Dx) Start: 01-16-2023 End: 01-16-2023 ambulatory CRIS KELLIE Not Available Start: 01-16-2023 End: 01-16-2023 ambulatory CRIS HOPKINS Not Available Start: 12-30-2021 End: 12-31-[address] CRIS HOPKINS Facility:[facility] Start: 11-08-2021 End: 11-09-2021 ambulatory AUSTIN ORDAZLiz Facility:[facility] Start: 11-08-2021 End: 11-10-[address] CRIS HOPKINS Facility:[facility] Procedures Date Procedure Procedure Detail Performing Clinician Start: 01-16-2023 Mammography Robson dumont DPM Work Phone: Start: 01-25-2017 Colonoscopy Robson dumont DPM Work Phone: Plan of Treatment Date Care Activity Detail Author Start: 01-25-2027 Screening for malign ant neoplasm of colon [facility] Start: 09-27-2024 Medicare Annual Well ness (AWV) Medicare Annual Wellness (AWV) [facility] Start: 02-18-2024 End: 02-18-2024 Patient encounter procedure 02/18/2024 11:00 AM EST Office Visit [facility] [address] [facility] [id number] Robson Stone DPM [address] [place] [address] [facility] Start: 01-22-2024 End: 01-22-2024 Patient encounter procedure 01/22/2024 9:30 AM EST Office Visit [facility] [address] [place] [id number] Cris Hopkins MD [address] [place] [address] [facility] Start: 01-17-2024 Medicare Annual Well ness (AWV) Medicare Annual Wellness (AWV) [facility] Start: 01-17-2024 Screening for malign ant neoplasm of breast Mammogram [facility] Start: 12-19-2023 End: 12-19-2023 Patient encounter procedure [facility] Comment on above: Arrived Start: 12-05-2023 End: 12-05-2023 Patient encounter procedure 12/05/2023 10:45 AM EDT Office Visit [facility] [address] [place] [address] Robson Stone, DPM [address] [place] [address] Arrived [facility] Comment on above: Arrived Start: 10-21-2023 Influenza vaccination Influenza Vacc ine (#1) [facility] Start: 1950 Screening for malign ant neoplasm of colon [facility] Immunizations Immunization Date Immunization Notes Care Provider Fa cility 01-16-2023 Influenza, High-dose Seasonal, Quadrivalent, Preservative Free Robson Rusher DPM Work Phone: [facility] 01-16-2023 influenza virus vacc ine, unspecified formulation Robson Rusher DPM Work Phone: [facility] 01-10-2022 influenza, high dose seasonal, preservative-free Orbson Rusher DPM Work Phone: [facility] 01-10-2022 Influenza, High-dose Seasonal, Quadrivalent, Preservative Free Robson Rusher DPM Work Phone: [facility] 11-08-2021 pneumococcal polysaccharide vaccine, 23 valent Robson Rusher DPM Work Phone: [facility] 01-06-2021 Influenza, High-dose Seasonal, Quadrivalent, Preservative Free Robson Rusher DPM Work Phone: [facility] 05-02-2020 Pfizer Purple Cap SARS-CoV-2 Vaccination Robson Rusher DPM Work Phone: [facility] 04-11-2020 Pfizer Purple Cap SARS-CoV-2 Vaccination Robson Rusher DPM Work Phone: [facility] 11-26-2019 influenza, high dose seasonal, preservative-free Robson Rusher DPM Work Phone: [facility] 11-26-2019 Influenza, High-dose Seasonal, Quadrivalent, Preservative Free Robson Rusher DPM Work Phone: [facility] 01-09-2019 influenza, high dose seasonal, preservative-free Robson Rusher DPM Work Phone: [facility] 01-04-2018 pneumococcal polysaccharide vaccine, 23 valent Robson Rusher DPM Work Phone: [facility] 12-13-2017 influenza, seasonal, injectable, preservative free Robson Rusher DPM Work Phone: [facility] 01-02-2017 pneumococcal conjuga te vaccine, 13 valent Robson Rusher DPM Work Phone: [facility] 11-19-2016 influenza, injectabl e, quadrivalent, preservative free Robson Rusher DPM Work Phone: [facility] 07-11-2016 zoster vaccine, live Robson Rusher DPM Work Phone: [facility] 12-24-2015 influenza, seasonal, injectable, preservative free Robson Rusher DPM Work Phone: [facility] 04-06-2014 zoster vaccine, live Robson Rusher DPM Work Phone: [facility] 03-24-2014 tetanus toxoid, redu doug diphtheria toxoid, and acellular pertussis vaccine, adsorbed Robson Rusher DPM Work Phone: [facility] Payers Date Payer Category Payer Medicare [employer]AGE [facility] MEDIC[employer] ADVANTAGE [id number] 2021-Present [address] [place] [address] [id number] 2021 Medicare (Managed Care) [facility] [id number] 1959 Unknown [id number] 1950 Unknown [id number] 2.16.840.1.232420.3.579. 2.593 1951 Unknown [id number] 2.16.840.1.251718.3.579. 2.593 1951 Unknown [id number] 2.16.840.1.275801.3.579. 2.1286 1951 Unknown [id number] 2.16.840.1.583394.3.579. 2.1286 1951 Unknown [id number] 2.16.840.1.056537.3.579. 2.1286 1951 Unknown [id number] 2.16.840.1.165115.3.579. 2.1286 1951 Unknown [id number] 2.16.840.1.631018.3.579. 2.1286 1951 Unknown [id number] 2.16.840.1.890635.3.579. 2.1286 1951 Unknown [id number] 2.16.840.1.377223.3.579. 2.1259 1951 Unknown [id number] 2.16.840.1.668519.3.579. 2.1259 1951 Unknown [id number] 2.16.840.1.140649.3.579. 2.1259 1951 Unknown [id number] 2.16.840.1.894840.3.579. 2.1259 1951 Unknown [id number] 2.16.840.1.127074.3.579. 2.1259 1951 Unknown [id number] 2.16.840.1.277185.3.579. 2.1259 1951 Unknown [id number] 2.16.840.1.304520.3.579. 2.9 1951 Unknown [id number] 2.16.840.1.217670.3.579. 2.1259 1951 Unknown [id number] 2.16.840.1.700768.3.579. 2.1259 1951 Unknown [id number] 2.16.840.1.300477.3.579. 2.1259 1951 Unknown [id number] 2.16.840.1.642439.3.579. 2.1258 1951 Unknown [id number] 2.16.840.1.111267.3.579. 2.1258 1951 Unknown [id number] 2.16.840.1.268322.3.579. 2.9 1951 Unknown [id number] 2.16.840.1.898733.3.579. 2.1259 1951 Unknown [id number] 2.16.840.1.045668.3.579. 2.9 1951 Unknown [id number] 2.16.840.1.026492.3.579. 2.1259 1951 Unknown [id number] 2.16.840.1.992933.3.579. 2.1259 1951 Unknown [id number] 2.16.840.1.689197.3.579. 2.1259 1951 Unknown [id number] 2.16.840.1.115872.3.579. 2.1259 Social History Date Type Detail Facility Start: 09-28-2022 Tobacco smoking status RIIS Never sm oked tobacco [facility] Start: 09-28-2022 Tobacco use and exposure Smoke less tobacco non-user [facility] Start: 01-16-2023 End: 12-19-2023 Alcohol intake Lifetime non-drinker (finding) [facility] Start: 01-09-2023 End: 09-28-2023 [facility] Start: 01-09-2023 End: 09-28-2023 Humiliation, Afraid, Rape, and Kick questionnaire [HARK] [facility] Within the last year , have you been afraid of your partner or ex-partner? No [facility] Do you belong to any clubs or organizations such as adventist groups, unions, fraternal or athletic groups, or school groups? Yes [facility] Are you now , , , , never or living with a partner? [facility] How often to you hav e a drink containing alcohol? Never [facility] How many standard dr inks containing alcohol do you have on a typical day? Patient does not drink [facility] Do you feel stress - tense, restless, nervous, or anxious, or unable to sleep at night because your mind is troubled all the time - these days [OSQ] Only a little [facility] (I/We) worried wheth er (my/our) food would run out before (I/we) got money to buy more. Never true [facility] Start: 10-13-2022 Alcohol Comment Caffeine intak e: 2-3 cups per day coffee [facility] Start: 1950 Sex Assigned At Not on file [facility] History of Present illness Narrative 12-19-2023 Robson Stone DPM - 12/19/2023 10:45 AM EDT Note Date & Type Note Facility 12-19-2023 History of Presen t illness Narrative Images from the original note were not included. Subjective Patient ID: Shaan Choudhary is a 72 y.o. female who presents for POV #2 (Shaan Choudhary is a 72 y.o. female who presents for POV#2. Patient relates achy and swelling. ). HPI Date of surgery 11/22/2023: Gastrocnemius recession, [place] micro debridement with injection of human derived allograft tissue, right Patient presents to clinic postoperatively. Patient is still notes some swelling in the leg. She has no tenderness near the Achilles region. Review of Systems Constitutional: Positive for activity change. Negative for appetite change. Respiratory: Negative for chest tightness and shortness of breath. Cardiovascular: Negative for chest pain. Endocrine: Negative for cold intolerance and heat intolerance. Musculoskeletal: Positive for arthralgias and gait problem. Skin: Negative for color change and wound. Allergic/Immunologic: Negative for immunocompromised state. Neurological: Negative for weakness and numbness. Hematological: Does not bruise/bleed easily. Psychiatric/Behavioral: Negative for agitation and behavioral problems. Medications Current Outpatient Medications: alendronate (Fosamax) 70 MG tablet, TAKE 1 TABLET BY MOUTH EVERY WEEK, Disp: 12 tablet, Rfl: 1 cyclobenzaprine (Flexeril) 10 MG tablet, Take 10 mg by mouth 3 (three) times a day as needed, Disp: , Rfl: Gabapentin 10 % cream, Apply topically, Disp: , Rfl: losartan (Cozaar) 100 MG tablet, TAKE 1 TABLET BY MOUTH ONCE DAILY, Disp: 100 tablet, Rfl: 0 moxifloxacin (Vigamox) 0.5 % ophthalmic solution, instill 1 (ONE) DROP IN THE AFFECTED EYE(S) FOUR TIMES DAILY for the day following surgery FOR 7 DAYS, Disp: , Rfl: NON FORMULARY, , Disp: , Rfl: oxyCODONE (Roxicodone) 5 MG immediate release tablet, Take 5 mg by mouth every 4 (four) hours if needed, Disp: , Rfl: prednisoLONE acetate (Pred-Forte) 1 % ophthalmic suspension, instill 1 (ONE) DROP IN THE AFFECTED EYE(S) FOUR TIMES DAILY following surgery FOR 7 DAYS, Disp: , Rfl: Allergies Lisinopril and Penicillins Past Surgical History Past Surgical History: Procedure Laterality Date APPENDECTOMY 11/07/2021 CATARACT EXTRACTION 2013 KNEE SURGERY 1993 KNEE SURGERY Bilateral knee surgery 1982- Dr Murillo- scope- meniscus tear TUBAL LIGATION 1982 Family History Family History Problem Relation Name Age of Onset Thyroid disease Mother Nasreen Hearing loss Mother Nasreen Stroke Mother Nasreen Cancer Father Angel Colon polyps Father Angel Uterine cancer Maternal Grandmother Objective Physical Exam Constitutional: Comments: Presents to clinic ambulating with cane assistance. Using slip-on shoes. Accompanied by her . HENT: Head: Normocephalic and atraumatic. Cardiovascular: Pulses: Normal pulses. Pulmonary: Effort: Pulmonary effort is normal. No respiratory distress. Abdominal: Palpations: There is no mass. Musculoskeletal: Cervical back: No rigidity. Comments: Right foot: Incision well coapted. No drainage or cellulitis. No tenderness to the Achilles tendon today. Muscle strength 4/5 for dorsiflexion, plantar flexion. There is still significant edema to the right lower extremity. Negative Homans test. No tenderness with compression of the calf which feels soft. Skin: Capillary Refill: Capillary refill takes less than 2 seconds. Findings: No lesion or rash. Neurological: Mental Status: She is alert. Comments: No loss of protective sensation, gross sensation intact. Psychiatric: Mood and Affect: Mood normal. Behavior: Behavior normal. === 08/22/23 === MR ANKLE RIGHT WO IV CONTRAST - Impression - Moderate to severe Achilles tendinosis with small areas of low-grade partial-thickness tearing/stripping distally, without full-thickness tear. Small amount of retrocalcaneal bursitis and reactive edema within the calcaneus at the Achilles insertion. Mild peroneal tenosynovitis, without tear. Mild tenosynovitis at the knot of Samuel. ELECTRONICALLY SIGNED BY: Joseluis Peña MD Assessment/Plan ICD-10-CM 1. S/P foot surgery Z98.890 2. Right foot pain M79.671 3. Localized edema R60.0 Patient was examined and evaluated. Patient still has a lot of swelling of the right lower extremity which is not unusual for this point postoperatively. Patient's states that she has been very active and states that recently she was driving to [place] for a long time in the car. All of this would certainly contribute to some swelling of the leg. I recommend compression socks and elevation as much as possible. Recommend formalized physical therapy focusing on range of motion and strengthening exercises. Patient elects for home exercise program which was printed off and given to her today. Complete daily as instructed. Follow up in 2 months. This note was created with the assistance of a speech recognition program. While intending to generate a timely document that accurately reflects the content of the visit, no guarantee can be provided that every grammatical or spelling mistake has been or will be identified or corrected. Thank you for your understanding. Robson Stone DPM documented in this encounter [facility] History of Present illness Narrative 12-05-2023 Robson Stone, DPM - 12/05/2023 10:45 AM EDT Note Date & Type Note Facility 12-05-2023 History of Presen t illness Narrative Images from the original note were not included. Subjective Patient ID: Shaan Choudhary is a 72 y.o. female who presents for POV#1 ( Shaan Choudhary is a 72 y.o. female who presents for Post Op#1. DOS 11/22/2023.). HPI Date of surgery 11/22/2023: Gastrocnemius recession, [place] micro debridement with injection of human derived allograft tissue, right Patient presents to clinic postoperatively. Overall doing well. She did note some swelling in her knee that just started yesterday. She has been using the fracture boot for ambulation. Review of Systems Constitutional: Positive for activity change. Negative for appetite change. Respiratory: Negative for chest tightness and shortness of breath. Cardiovascular: Negative for chest pain. Endocrine: Negative for cold intolerance and heat intolerance. Musculoskeletal: Positive for arthralgias and gait problem. Skin: Negative for color change and wound. Allergic/Immunologic: Negative for immunocompromised state. Neurological: Negative for weakness and numbness. Hematological: Does not bruise/bleed easily. Psychiatric/Behavioral: Negative for agitation and behavioral problems. Medications Current Outpatient Medications: alendronate (Fosamax) 70 MG tablet, TAKE 1 TABLET BY MOUTH EVERY WEEK, Disp: 12 tablet, Rfl: 1 cyclobenzaprine (Flexeril) 10 MG tablet, Take 10 mg by mouth 3 (three) times a day as needed, Disp: , Rfl: Gabapentin 10 % cream, Apply topically, Disp: , Rfl: losartan (Cozaar) 100 MG tablet, TAKE 1 TABLET BY MOUTH ONCE DAILY, Disp: 100 tablet, Rfl: 0 moxifloxacin (Vigamox) 0.5 % ophthalmic solution, instill 1 (ONE) DROP IN THE AFFECTED EYE(S) FOUR TIMES DAILY for the day following surgery FOR 7 DAYS, Disp: , Rfl: NON FORMULARY, , Disp: , Rfl: oxyCODONE (Roxicodone) 5 MG immediate release tablet, Take 5 mg by mouth every 4 (four) hours if needed, Disp: , Rfl: prednisoLONE acetate (Pred-Forte) 1 % ophthalmic suspension, instill 1 (ONE) DROP IN THE AFFECTED EYE(S) FOUR TIMES DAILY following surgery FOR 7 DAYS, Disp: , Rfl: Allergies Lisinopril and Penicillins Past Surgical History Past Surgical History: Procedure Laterality Date APPENDECTOMY 11/07/2021 CATARACT EXTRACTION 2014 KNEE SURGERY 1994 KNEE SURGERY Bilateral knee surgery 1982- Dr Murillo- scope- meniscus tear TUBAL LIGATION 1982 Family History Family History Problem Relation Name Age of Onset Thyroid disease Mother Nasreen Hearing loss Mother Nasreen Stroke Mother Nasreen Cancer Father Angel Colon polyps Father Angel Uterine cancer Maternal Grandmother Objective Physical Exam Constitutional: Comments: Presents to clinic ambulating unassisted in fracture boot on the right foot. Accompanied by her . HENT: Head: Normocephalic and atraumatic. Cardiovascular: Pulses: Normal pulses. Pulmonary: Effort: Pulmonary effort is normal. No respiratory distress. Abdominal: Palpations: There is no mass. Musculoskeletal: Cervical back: No rigidity. Comments: Right foot: Incision well coapted with sutures intact. No drainage or cellulitis. Mild sensitivity to palpation at the Achilles tendon. Muscle strength testing deferred. Skin: Capillary Refill: Capillary refill takes less than 2 seconds. Findings: No lesion or rash. Neurological: Mental Status: She is alert. Comments: No loss of protective sensation, gross sensation intact. Psychiatric: Mood and Affect: Mood normal. Behavior: Behavior normal. === 08/22/23 === MR ANKLE RIGHT WO IV CONTRAST - Impression - Moderate to severe Achilles tendinosis with small areas of low-grade partial-thickness tearing/stripping distally, without full-thickness tear. Small amount of retrocalcaneal bursitis and reactive edema within the calcaneus at the Achilles insertion. Mild peroneal tenosynovitis, without tear. Mild tenosynovitis at the knot of Samuel. ELECTRONICALLY SIGNED BY: Joseluis Peña MD Assessment/Plan ICD-10-CM 1. S/P foot surgery Z98.890 2. Right foot pain M79.671 Patient was examined and evaluated. Overall I am pleased with her improvement up to this point. Sutures were removed in office. Incisions reinforced with Steri-Strips. At this point we will transition her out of the fracture boot into athletic shoe gear as tolerated. Recommend avoiding running, jumping. Recommend gentle [id number] exercises daily. Follow up in 2 weeks for incision check. Patient may shower and get the foot wet. Avoid soaking in a pool or hot tub for an additional 2 weeks. This note was created with the assistance of a speech recognition program. While intending to generate a timely document that accurately reflects the content of the visit, no guarantee can be provided that every grammatical or spelling mistake has been or will be identified or corrected. Thank you for your understanding. Robson Stone DPM documented in this encounter [facility] History of Present illness Narrative 04-04-2023 Robson Stone DPM - 04/04/2023 9:48 AM EST Note Date & Type Note Facility 04-04-2023 History of Presen t illness Narrative Prescription sent to [facility]. 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- Primary Contact dermatitis and other eczema due to plants (except food) Primary hypertension (CMS/HCC) Unspecified essential hypertension Wellness examination- Primary Primary hypertension (CMS/HCC) Unspecified essential hypertension Mixed hyperlipidemia (CMS/HCC) Mixed hyperlipidemia Osteopenia after menopause Encounter for immunization Osteopenia, unspecified location Trochanteric bursitis of left hip S/P foot surgery- Primary Other postprocedural status Right foot pain Pain in soft tissues of limb documented in this encounter [facility] Evaluation note Note Date & Type Note Facility Evaluation note Diagnosis 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- Primary Contact dermatitis and other eczema due to plants (except food) Primary hypertension (CMS/HCC) Unspecified essential hypertension Wellness examination- Primary Primary hypertension (CMS/HCC) Unspecified essential hypertension Mixed hyperlipidemia (CMS/HCC) Mixed hyperlipidemia Osteopenia after menopause Encounter for immunization Osteopenia, unspecified location Trochanteric bursitis of left hip S/P foot surgery- Primary Other postprocedural status Right foot pain Pain in soft tissues of limb Localized edema Edema documented in this encounter [facility] Evaluation note Note Date & Type Note Facility Evaluation note Diagnosis 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- Primary Contact dermatitis and other eczema due to plants (except food) Primary hypertension (CMS/HCC) Unspecified essential hypertension Wellness examination- Primary Primary hypertension (CMS/HCC) Unspecified essential hypertension Mixed hyperlipidemia (CMS/HCC) Mixed hyperlipidemia Osteopenia after menopause Encounter for immunization Osteopenia, unspecified location Trochanteric bursitis of left hip Osteopenia, unspecified location documented in this encounter [facility] Summary Purpose Family History No Family History Records FoundNo Family History Records FoundNo Family History Records FoundNo Family History Records Found Advance Directives No Advanced Directives Records FoundNo Advanced Directives Records FoundNo Advanced Directives Records FoundNo Advanced Directives Records Found Additional Source Comments INFORMATION SOURCE (unrecogn ized section and content) DATE CREATED AUTHOR 11/20/2021 [facility] DATE CREATED AUTHOR AUTHOR'S ORGANIZ ATION 01/04/2022 [facility] DATE CREATED AUTHOR AUTHOR'S ORGANIZ ATION 11/23/2023 [facility] DATE CREATED AUTHOR AUTHOR'S ORGANIZ ATION 12/21/2023 [facility] EPIC Care Teams (unrecognized sec tion and content) Postal Delivery Officer Relationship Specialty Start Date End Date Cris Hopkins MD [address] [place] [address] PCP - Caio AGARWAL 02/19/21 Cris Hopkins MD [address] [place] [address] PCP - General Family Medicine 06/27/22 Postal Delivery Officer Relationship Specialty Start Date End Date Cris Hopkins MD [address] [place] [address] PCP - Caio AGARWAL 02/19/21 Cris Hopkins MD [address] [facility] [place] [address] PCP - General Family Medicine 06/27/22 Postal Delivery Officer Relationship Specialty Start Date End Date Cris Hopkins MD [address] [place] [address] PCP - Caio AGARWAL 02/19/21 Cris Hopkins MD [address] [facility] [place] [address] PCP - General Family Medicine 06/27/22 Postal Delivery Officer Relationship Specialty Start Date End Date Cris Hopkins MD [address] [facility] [place] [address] PCP - Caio AGARWAL 02/19/21 Cris Hopkins MD [address] [facility] [place] [address] PCP - General Family Medicine 06/27/22 Postal Delivery Officer Relationship Specialty Start Date End Date Cris Hopkins MD [address] [facility] [place] [address] PCP - Caio AGARWAL 02/19/21 Cris Hopkins MD [address] [facility] [place] [address] PCP - General Family Medicine 06/27/22 Reason for Visit (unrecogniz ed section and content) Reason Comments POV#1 Shaan Choudhary is a 72 y.o. female who presents for Post Op#1. DOS 11/22/2023. Reason Comments POV #2 Shaan Choudhary is a 72 y.o. female who presents for POV#2. Patient relates achy and swelling. Reason Comments Med Refill FOR RECORDS PERTAINING TO PATIENTS WHO ARE OR HAVE BEEN ENROLLED IN A CHEMICAL DEPENDENCY/SUBSTANCEABUSE PROGRAM, SOME INFORMATION MAY BE OMITTED. This clinical summary was aggregated from multiple sources. Caution should be exercised in using it in the provision of clinical care. This summary normalizes information from multiple sources, and as a consequence, information in this document may materially change the coding, format and clinical context of patient data. In addition, data may be omitted in some cases. CLINICAL DECISIONS SHOULD BE BASED ON THE PRIMARY CLINICAL RECORDS. [facility] provides no warranty or guarantee of the accuracy or completeness of information in this document.
== END 2024-01-15 11:09 | disposition home or self-care (01) ==
LOC: MAMMO 11:09
PROVIDERS: PCP Family Medicine; Visit Provider Family Medicine
DX: Z12.31 Encounter for screening mammogram for malignant neoplasm of breast (principal); Z80.3 Family history of malignant neoplasm of breast; Z80.1 Family history of malignant neoplasm of trachea, bronchus and lung; Z80.8 Family history of malignant neoplasm of other organs or systems
CPT/HCPCS: 77063; 77067